=== PATIENT | male | born 1980 | race Caucasian/White ===

== ENCOUNTER 2017-10-03 13:59 | Emergency (ER) | payer OTHER ==
[~2017-10-03] VITALS: Ht 172.7 cm; Wt 86.2 kg
== END 2017-10-03 18:14 | disposition home or self-care (01) ==
LOC: ER 13:59
DX: K29.70 Gastritis, unspecified, without bleeding (principal); R10.11 Right upper quadrant pain

== ENCOUNTER 2017-10-06 07:19 | Outpatient (CLI) | payer OTHER | END 2017-10-06 17:28 | disposition home or self-care (01) | LOC: NUCLEAR 07:19 | DX: K80.20 Calculus of gallbladder without cholecystitis without obstruction (principal) | CPT/HCPCS: 78227; A9537; J2805 ==